=== PATIENT | female | born 1950 | race Caucasian/White ===

== ENCOUNTER 2019-01-24 18:30 | Emergency (ER) | payer OTHER, MEDICARE ==
--- NOTE | 2019-01-24 18:39 | EDPHY ---
H & P Stated Complaint: possible etoh Time Seen by Provider: 01/24/19 18:32 HPI/ROS: CHIEF COMPLAINT: Suspected alcohol abuse HISTORY OF PRESENT ILLNESS: 68 year old female arrives via ambulance for suspected alcohol abuse. Per the patient, she was at the " [place] " festival in [place] was drinking alcohol, was stumbling and was unable to ambulate without assistance. There were no reports of trauma or fall. No seizure. Patient unable to ambulate without assistance. No reports of trauma or assault. No fall from height. No structures of height near patient. No complaints of pain or discomfort. Greeted on arrival notes that the patient was otherwise acting well and they are concerned the patient may have been non consensually given a drug in her drink REVIEW OF SYSTEMS: 10 systems reviewed and negative with the exception of the elements mentioned in the history of present illness PAST MEDICAL/SURGICAL HISTORY: no anticoagulant use, no relevant medical/ surgical history SOCIAL HISTORY: Positive for witnessed and self disclosed alcohol use PHYSICAL EXAM 1) GENERAL: Well-developed, well-nourished, alert and oriented. Appears to be in no acute distress. Answering questions appropriately.Smells of alcohol. 2) HEAD: Normocephalic, atraumatic 3) HEENT: Patient has makeup on her face reminiscent of a skeleton. Pupils equal, round, reactive to light bilaterally. Negative Horners. Nasopharynx, oropharynx, clear. No deformity or angulation of nose. No septal hematoma. No rhinorrhea. No oral trauma. Ears bilaterally with normal tympanic membranes. No hemotympanum. No fluid or blood in the external auditory canal. No raccoon eyes. No Diamond sign. Teeth are normally aligned with no gross malocclusion, TMJ bilaterally nontender, facial bones nontender including the zygomatic arch, maxilla mandible. 4) NECK: No cervical collar is on. Posterior cervical spine is nontender, no stepoff, no effusion. Full range of motion which does not elicit any midline cervical spine pain, no posterior midline tenderness, no step-off. 5) LUNGS: Clear to auscultation bilaterally, no wheezes, no rhonchi, no retractions. No obvious signs of trauma. No chest wall pain. No flaring, no grunting. Moving symmetrically. No crepitus. 6) HEART: Regular rate and rhythm, 7) ABDOMEN: No guarding, no rebound, no focal tenderness, no peritoneal signs, no signs of trauma, no ecchymosis 8) MUSCULOSKELETAL: Moving all extremities, no focal areas of tenderness, no obvious trauma. 9) BACK: No midline vertebral tenderness, no fluctuance, no step-off, no obvious trauma, no visual or palpable abnormality. 10) SKIN: No laceration. No abrasion DIFFERENTIAL DIAGNOSIS: In no particular orderincluding but not limited to hypoglycemia, infectious process, electrolyte abnormality, head injury and intoxicants. - Personal History Current Tetanus/Diphtheria Vaccine: Yes - Medical/Surgical History Hx Asthma: No Hx Chronic Respiratory Disease: No Hx Diabetes: No Hx Cardiac Disease: No Hx Renal Disease: No Hx Cirrhosis: No Hx Alcoholism: No Hx HIV/AIDS: No Hx Splenectomy or Spleen Trauma: No - Social History Smoking Status: Never smoked Constitutional: Initial Vital Signs Temperature (C) 36.6 C 01/24/19 18:33 Heart Rate 89 01/24/19 18:33 Respiratory Rate 16 01/24/19 18:33 Blood Pressure 159/100 H 01/24/19 18:33 O2 Sat (%) 95 01/24/19 18:33 O2 Delivery Mode Room Air Allergies/Adverse Reactions: No Known Allergies Allergy (Unverified 01/24/19 18:33) Home Medications: Medication Instructions Recorded NK [No Known Home Meds] 01/24/19 Medical Decision Making ED Course/Re-evaluation: 6:47 p.m.: Breathalyzer alcohol at this time is .107 8:30 p.m.: Patient observed ambulating with stable steady gait, clear speech pattern awake alert oriented person place time. Does not require assistance for ambulation at this time.She is concerned that she may have been given and illegal substance in her drink. Discussed the limitations of diagnostic studies for possible illicit substance from the ER and she verbalized understanding this. From a trauma perspective, I do not identify any focal areas of trauma or head injury . Do not think that imaging studies indicated at this time. She feels that she can be discharged. Patient feels comfortable being discharged. All questions and concerns addressed by myself. Patient given my usual and customary discharge precautions and instructions regarding their clinical impression. Care of patient under supervision of secondary supervising physician Dr Martha Munoz. Departure - Departure Disposition: Home, Routine, Self-Care Clinical Impression: Alcohol abuse Condition: Good Instructions: Abuse of Alcohol (ED) Referrals: Joselito Cole MD [Medical Doctor] - 2-3 days, call for appt.
[2019-01-24 21:13] VITALS: BP 160/100
== END 2019-01-24 21:13 | disposition home or self-care (01) ==
DX: F10.920 Alcohol use, unspecified with intoxication, uncomplicated (principal)
CPT/HCPCS: G0480